=== PATIENT | male | born 1980 | race Caucasian/White ===

== ENCOUNTER 2016-08-15 03:08 | Emergency (ER) | payer OTHER | END 2016-08-15 04:45 | disposition left against medical advice (07) | LOC: ER1 03:08 | DX: Z53.21 Procedure and treatment not carried out due to patient leaving prior to being seen by health care provider (principal) ==

== ENCOUNTER 2016-08-23 09:50 | Emergency (ER) | payer OTHER ==
[2016-08-23 10:26] LABS: HEMOGLOBIN 14.2 gm/dl (14.0-17.5); RED BLOOD COUNT 4.65 M/UL (4.20-5.50); WHITE BLOOD COUNT 10.3 K/UL (4.5-11.0)
[2016-08-23 10:50] LABS: BUN/CREATININE RATIO 7 (0-10)
== END 2016-08-23 13:33 | disposition home or self-care (01) ==
LOC: ER1 09:50
PROVIDERS: Specialist/Technologist Athletic Trainer
DX: R07.2 Precordial pain (principal); F17.210 Nicotine dependence, cigarettes, uncomplicated; Z90.49 Acquired absence of other specified parts of digestive tract; Z79.82 Long term (current) use of aspirin; Z88.2 Allergy status to sulfonamides
CPT/HCPCS: 36415; 71010; 80053; 82550; 82553; 83690; 83874; 84439; 84443; 84484; 85025; 85379; 93005; 96374; 99285; J1885; J7050; Q9963

== ENCOUNTER → 2016-09-08 | Outpatient (CLI) | payer OTHER | LOC: KOH-I 14:53 | DX: M54.2 Cervicalgia (principal) | CPT/HCPCS: 72050 ==

== ENCOUNTER 2016-09-18 12:02 | Emergency (ER) | payer OTHER ==
[2016-09-18 13:15] LABS: HEMOGLOBIN 13.5 gm/dl (14.0-17.5); RED BLOOD COUNT 4.41 M/UL (4.20-5.50); WHITE BLOOD COUNT 5.7 K/UL (4.5-11.0)
[2016-09-18 13:33] LABS: BUN/CREATININE RATIO 13 (0-10)
== END 2016-09-18 15:31 | disposition home or self-care (01) ==
LOC: ER1 12:02
PROVIDERS: Physician Assistant Medical
DX: R10.31 Right lower quadrant pain (principal); F17.210 Nicotine dependence, cigarettes, uncomplicated; Z88.2 Allergy status to sulfonamides; Z90.49 Acquired absence of other specified parts of digestive tract; K21.9 Gastro-esophageal reflux disease without esophagitis; Z79.899 Other long term (current) drug therapy
CPT/HCPCS: 36415; 80053; 81001; 83690; 85025; 96360; 99284; J7040; J7050; Q9962